=== PATIENT | female | born 1935 ===

== ENCOUNTER 2018-09-16 11:09 | Observation (INO) | payer MEDICARE ==
[2018-09-16 12:01] LABS: BASO # 0.01 K/mm3 (0.0-2.0); BASO % 0.2 % (0.0-3.0); EOS % 0.6 % (1.5-5.0); GRAN # 3.71 (1.4-6.5); GRAN % 75.6 % (50.0-68.0); HEMOGLOBIN 11.5 g/dL (12.0-16.0); LYMPH # 0.9 (1.2-3.4); LYMPH % 18.5 % (22.0-35.0); MEAN CELL VOLUME 93.4 fl (80.0-105.0); MEAN CORPUSCULAR HEMOGLOBIN 33.1 pg (25.0-35.0); MEAN CORPUSCULAR HGB CONC 35.5 g/dl (31.0-37.0); MEAN PLATELET VOLUME 9.1 fl (7.0-11.0); MONO # 0.3 (0.1-0.6); MONO % 5.1 % (1.0-6.0); RBC 3.47 10^6/uL (3.5-6.1); RED CELL DISTRIBUTION WIDTH 15.9 % (11.5-14.5); WHITE BLOOD COUNT 4.9 10^3/uL (4.5-11.0)
[2018-09-16 12:12] LABS: INR 1.06; PARTIAL THROMBOPLASTIN TIME 23.6 Seconds (25.1-36.5); PROTHROMBIN TIME 12.2 SECONDS (9.4-12.5)
[2018-09-16 12:15] LABS: ALB/GLOB RATIO 1.5 (1.1-1.8); ALBUMIN 4.2 g/dL (3.0-4.8); CALCIUM 9.1 mg/dL (8.4-10.5)
[2018-09-16] MEDS ORDERED: Sodium Chloride 0.9% 1,000 ML IV STA (12:20)
[2018-09-16 12:25] LABS: TROPONIN I 0.02 ng/mL
--- NOTE | 2018-09-16 12:31 | ED PDOC ---
Arrival/HPI - General Chief Complaint: Dizziness/Lightheaded Time Seen by Provider: 09/16/18 11:15 Historian: Patient - History of Present Illness Narrative History of Present Illness (Text): 09/16/18 12:22 82yo female with pmhx of hypertension, Diabetes, hyperlipdemia, AMY s/p 7stents who present with complaint of dizziness and nausea. the granddaughter by the bedside states patient suddenly became dizzy, nauseous and diaphoretic while sitting and visiting her daughter who is admitted in ICU. Patient states she became worried and anxious when she saw her daughter intubated. She reports chest pain, but both her and the grand daughter states she have chest pain everyday secondary to her history of Angina. States she sees a [employer] Production [employer] at [facility]. She denies fever,chills, vomiting, headache, focal weakness, ripping/tearing upper back pain, slurred speech, any other complaint. Past Medical History - Provider Review Nursing Documentation Reviewed: Yes - Cardiac Hx Hypertension: Yes - Endocrine/Metabolic Hx Diabetes Mellitus Type 2: Yes - Psychiatric Hx Substance Use: No Family/Social History - Physician Review Nursing Documentation Reviewed: Yes Family/Social History: Unknown Family HX Smoking Status: Former Smoker Hx Alcohol Use: No Hx Substance Use: No Allergies/Home Meds Allergies/Adverse Reactions: Allergies No Known Allergies Allergy (Verified 09/16/18 14:34) Review of Systems - Physician Review All systems were reviewed & negative as marked: Yes - Review of Systems Constitutional: Normal Eyes: Normal ENT: Normal Respiratory: Normal Cardiovascular: Chest Pain Gastrointestinal: Nausea. absent: Abdominal Pain, Constipation, Diarrhea Genitourinary Female: Normal Musculoskeletal: Normal Skin: Normal Neurological: Dizziness. absent: Focal Weakness, Gait Changes, Speech Changes Endocrine: Normal Hemo/Lymphatic: Normal Psychiatric: Normal Physical Exam Vital Signs Reviewed: Yes Vital Signs Temp Pulse Resp BP Pulse Ox 09/16/18 11:18 97.4 F L 46 L 16 86/43 L 97 Temperature: Afebrile Blood Pressure: Hypotensive Pulse: Regular Respiratory Rate: Normal Appearance: Positive for: Well-Appearing, Non-Toxic, Comfortable Pain Distress: None Mental Status: Positive for: Alert and Oriented X 3 - Systems Exam Head: Present: Atraumatic, Normocephalic Pupils: Present: PERRL Extroacular Muscles: Present: EOMI Conjunctiva: Present: Normal Mouth: Present: Moist Mucous Membranes Neck: Present: Normal Range of Motion Respiratory/Chest: Present: Clear to Auscultation, Good Air Exchange. No: Respiratory Distress, Accessory Muscle Use Cardiovascular: Present: Regular Rate and Rhythm, Normal S1, S2. No: Murmurs Abdomen: No: Tenderness, Distention, Peritoneal Signs Back: Present: Normal Inspection Upper Extremity: Present: Normal Inspection. No: Cyanosis, Edema Lower Extremity: Present: Normal Inspection. No: Edema Neurological: Present: GCS=15, CN II-XII Intact, Speech Normal, Motor Func Grossly Intact, Normal Sensory Function, Normal Cerebellar Funct, Other (No gross focal neurological deficit) Skin: Present: Warm, Dry, Normal Color. No: Rashes Psychiatric: Present: Alert, Oriented x 3, Normal Insight, Normal Concentration Medical Decision Making ED Course and Treatment: 09/16/18 17:11 82yo female in ED for dizziness and nausea minutes ENROLLMENT CONSULTANT. Labs EKG Chest xray 1L NS Labs was reviewed and all wnl EKG sinus iam with short NY @ 45bpm. N-stemi. No old EKG available for comparison. PT have UTI and started on Rocephin chest xray IMPRESSION: No active disease. Pt was admitted to r/o cardiac or Neuro cause of her dizziness. Case was DW Dr. Joseph and he accepted pt for admission. - Lab Interpretations Lab Results: 09/16/18 11:45 09/16/18 11:45 Lab Results 09/16/18 11:45: Sodium 137, Potassium 4.9, Chloride 103, Carbon Dioxide 26, Anion Gap 14, BUN 25 H, Creatinine 1.1, Est GFR ( Amer) 58, Est GFR (Non- Af Amer) 48, Random Glucose 256 H, Calcium 9.1, Magnesium 2.0, Total Bilirubin 1.9 H, AST 29, ALT 31, Alkaline Phosphatase 78, Lactate Dehydrogenase 655, Total Creatine Kinase 47, Troponin I Pending, NT-Pro-B Natriuret Pep Pending, Total Protein 6.9, Albumin 4.2, Globulin 2.7, Albumin/Globulin Ratio 1.5 09/16/18 11:45: PT 12.2, INR 1.06, APTT 23.6 L 09/16/18 11:45: WBC 4.9, RBC 3.47 L, Hgb 11.5 L, Hct 32.4 L, MCV 93.4, MCH 33.1, MCHC 35.5, RDW 15.9 H, Plt Count 150, MPV 9.1, Gran % 75.6 H, Lymph % (Auto) 18.5 L, Bartholomew % (Auto) 5.1, Eos % (Auto) 0.6 L, Baso % (Auto) 0.2, Gran # 3.71, Lymph # (Auto) 0.9 L, Bartholomew # (Auto) 0.3, Eos # (Auto) 0.0, Baso # (Auto) 0.01 09/16/18 11:26: POC Glucose (mg/dL) 262 H - RAD Interpretation Radiology Orders: 09/16/18 11:26 CHEST PORTABLE [RAD] Stat - Medication Orders Current Medication Orders: Sodium Chloride (Sodium Chloride 0.9%) 1,000 mls @ 100 mls/hr IV .Q10H STA Stop: 09/16/18 22:19 Disposition/Present on Arrival - Present on Arrival Any Indicators Present on Arrival: No History of DVT/PE: No History of Uncontrolled Diabetes: No Urinary Catheter: No History of Decub. Ulcer: No History Surgical Site Infection Following: None - Disposition Have Diagnosis and Disposition been Completed?: Yes Diagnosis: UTI (urinary tract infection), Near syncope, Chest pain Disposition: HOSPITALIZED Disposition Time: 13:00 Patient Plan: Admission Patient Problems: Current Active Problems Problem Status Onset Near syncope Acute UTI (urinary tract infection) Acute Condition: FAIR
--- NOTE | 2018-09-16 12:43 | RAD ---
Date of service: 09/16/2018 HISTORY: admission COMPARISON: No prior. FINDINGS: LUNGS: No active pulmonary disease. PLEURA: No significant pleural effusion identified, no pneumothorax apparent. CARDIOVASCULAR: Aortic calcification Normal cardiac size. No pulmonary vascular congestion. OSSEOUS STRUCTURES: No significant abnormalities. VISUALIZED UPPER ABDOMEN: Normal. OTHER FINDINGS: None. IMPRESSION: No active disease.
[2018-09-16 13:54] LABS: URINE BILIRUBIN SMALL (NEGATIVE); URINE BLOOD TRACE-INTACT (NEGATIVE); URINE GLUCOSE (UA) NEGATIVE (NEGATIVE); URINE LEUKOCYTE ESTERASE SMALL Leu/uL (NEGATIVE); URINE PROTEIN TRACE mg/dL (<30 mg/dL)
[2018-09-16 13:57] LABS: URINE APPEARANCE TURBID (CLEAR); URINE COLOR YELLOW (YELLOW)
[2018-09-16 14:05] LABS: URINE BACTERIA MANY /hpf; URINE RBC NEGATIVE /hpf (0-2)
[2018-09-16] MEDS ORDERED: cefTRIAXone 1 gm 1 GM/100 ML BAG IVPB STA (14:08)
--- NOTE | 2018-09-16 15:09 | CARD ---
APPROVED REPORT Date of service: 09/16/2018 EKG Measurement Heart [id number] <Conclusion> Marked sinus bradycardia with short NV Minimal voltage criteria for LVH, may be normal variant ST-T wave abnormality, consider lateral ischemia
[2018-09-16 16:55] VITALS: BMI 23.8
[2018-09-16] MEDS ORDERED: Influenza Vaccine 60 mcg/0.5 mL SYR (4YR UP) IM ONE (16:55)
[2018-09-16] MEDS ORDERED: Pneumococcal 23-Valent Vaccine IM ONE (16:55)
[2018-09-16] MEDS ORDERED: Sodium Chloride 0.45% 1,000 ML IV SCH (17:00)
--- NOTE | 2018-09-16 22:25 | HP ---
DATE OF EXAM: 09/16/2018 HISTORY OF PRESENT ILLNESS: She was called to the emergency room to see this young lady who is known for years. She is an 82-year-old female who presents with dizziness and nauseousness. Her granddaughter is at bedside. States she somewhat became dizzy and nauseous, diaphoretic, visiting her daughter who is admitted to the intensive care unit who is not doing well. She is very anxious and worried about her and she is intubated. PAST MEDICAL HISTORY: Diabetes, hypertension, high cholesterol, coronary artery disease with 7 stents. She has hypertension. She has diabetes, coronary artery disease. She was dizzy. FAMILY HISTORY: Unknown family history. SOCIAL HISTORY: Former smoker. No alcohol. No drugs. ALLERGIES: NO KNOWN DRUG ALLERGIES. REVIEW OF SYSTEMS: No headache. No vision changes. No hearing changes. No sore throat. No shortness of breath or cough. There is a little chest pain. There is nauseousness, but no abdominal pain. There is dizziness. No back pain. Skin, she notices is intact. No anxiety, depressed and anxious over daughter who was in the intensive care unit. PHYSICAL EXAMINATION GENERAL: She is well appearing, nontoxic, comfortable, in mild distress, alert and oriented x3. VITAL SIGNS: Temperature 97.4, pulse 46, respiratory rate 16, blood pressures , she is on IV fluids, 97% O2 sat. HEENT: Head is atraumatic, normocephalic. Pupils are reactive to light. Extraocular muscles are intact. Throat is moist. NECK: Supple. CARDIOPULMONARY: Regular rate. Normal S1, S2. LUNGS: Decreased breath sounds clear to auscultation. ABDOMEN: Soft, nontender. Positive bowel sounds. EXTREMITIES: No edema. She move all four extremities well. NEUROLOGICAL: GCS is 15. Cranial nerves II-XII. Tongue is midline. No gross neurological deficits. Alert, oriented x3. SKIN: Warm and dry. No apparent ulcers. LYMPHS: Thyroid midline. No palpable appreciable lymphadenopathy. LABORATORY DATA: She has a chest x-ray that shows no active disease. She had an EKG that shows marked sinus iam with short MI interval, voltage criteria for LVH, ST-T wave changes, consider lateral ischemia. The urine was positive for nitrites, small leukocytes, many bacteria. Sodium 137, potassium 4.9, BUN 25, creatinine 1.1, GFR is 48. Last blood sugar is 185. Calcium is 9.1, magnesium 2, total bili is 1.9, AST is 29, ALT 31, alk phos 78. Lactate dehydrogenase is 655, total creatine kinase 47. Troponin I is 0.02. BNP 432, total protein 6.9, albumin is 4.2, globulin is 2.7. INR is 1.06. White count 4.9, hemoglobin 11.5, hematocrit 32.4, platelets of 150. IMPRESSION: She is going to have a consult with Neurology, Infectious Disease and Cardiology. She will be on IV fluids, back on her medications and Rocephin. Check her troponins, oxygen and also some Zofran. She is here for dizziness, nauseousness, urinary tract infection, diabetes, hypertension. Adrian Joseph DO MTDD
[2018-09-16] MEDS: Insulin Lispro (humaLOG) MEDIUM Coverage SC SCH (22:37)
[2018-09-17 05:45] VITALS: O2SAT 99
[2018-09-17] MEDS: Insulin Lispro (humaLOG) MEDIUM Coverage SC SCH ×2 (08:40→12:24)
[2018-09-17 09:05] LABS: MEAN CELL VOLUME 93.9 fl (80.0-105.0); MEAN CORPUSCULAR HEMOGLOBIN 33.3 pg (25.0-35.0); MEAN CORPUSCULAR HGB CONC 35.5 g/dl (31.0-37.0); MEAN PLATELET VOLUME 9.7 fl (7.0-11.0); RBC 3.6 10^6/uL (3.5-6.1); RED CELL DISTRIBUTION WIDTH 15.9 % (11.5-14.5); WHITE BLOOD COUNT 3.9 10^3/uL (4.5-11.0)
[2018-09-17 09:14] LABS: ALB/GLOB RATIO 1.4 (1.1-1.8); ALBUMIN 4.1 g/dL (3.0-4.8); ALT/SGPT 28 U/L (7-56); AST/SGOT 26 U/L (14-36); BLOOD UREA NITROGEN 21 mg/dL (7-21); CALCIUM 9.2 mg/dL (8.4-10.5); GFR NON-AFRICAN AMERICAN 53
[2018-09-17 09:16] LABS: TROPONIN I < 0.01 ng/mL
[2018-09-17] MEDS ORDERED: Metoprolol Succinate 50 mg XL Tab PO SCH ×2 (10:00→10:30)
[2018-09-17] MEDS ORDERED: DICLOFENAC EPOLAMINE TD SCH ×2 (10:00→18:00)
[2018-09-17] MEDS ORDERED: Non Formulary Medication (Ranolazine [Ranexa] 500 MG) PO SCH (10:00)
[2018-09-17] MEDS ORDERED: cefTRIAXone 1 gm 1 GM/100 ML BAG IVPB SCH (10:00)
[2018-09-17 11:25] VITALS: BP 157/79
[2018-09-17 12:09] VITALS: PULSE 57; RESP 20; TEMP 97.8
--- NOTE | 2018-09-17 13:11 | DS ---
HISTORY OF PRESENT ILLNESS: She came in yesterday. She was very weak. She saw her daughter that was in the intensive care unit and I think it really affected her. She also has UTI. She is little bit renal insufficiency. We gave her IV fluids and she did well. She is feeling well. She is out of bed to chair. She is walking while she is in good spirits. She wants to go home. She will go home on a regular medication that she came in with Amaryl, diclofenac, Ecotrin, Imdur, Lipitor, Lyrica, Plavix, Ranexa, she will be on metoprolol. She will call me for a house call. She did well. PHYSICAL EXAMINATION: VITAL SIGNS: Her vital signs are 97.6 temperature, 87 pulse, 154/70 blood pressure as before the blood pressure pills, 18 respiratory rate, and 99% O2 saturation on room air. HEENT: Head is atraumatic and normocephalic. HEART: Regular rate. Heart rate now is 100. She is on metoprolol. LUNGS: Decreased breath sounds. ABDOMEN: Soft, nontender, positive bowel sounds. EXTREMITIES: No edema. LABORATORY DATA: She has a 3.9 white count, 12 hemoglobin, 33.8 hematocrit with 128 platelets. She has a 138 sodium, potassium 4.3, BUN 21, creatinine 1 better, GFR is 53 better. Blood sugar is 225, calcium is 9.2, total bilirubin is 1.3, AST is 26, ALT is 20, alk phos 82, troponin I is less than 0.01. Total protein is 7.1. Urine with many bacteria, should be on Cipro 500 mg twice a day. PLAN: Put her on regular medications and she will call me for house call. She is now on observation. Guillermo Joseph DO
--- NOTE | 2018-09-17 15:22 | CON ---
DATE: 09/17/2018 LOCATION: The patient is in room 277, bed 1. CHIEF COMPLAINT: Weakness. The patient of Dr. Adrian Joseph. The patient is seen in the emergency room yesterday by and had dizziness and lightheadedness in the emergency room, that was her chief complaint. HISTORY OF PRESENT ILLNESS: This is an 82-year-old female with hypertension, diabetes, hyperlipidemia, coronary artery disease with stents, her main disease associated with nausea where the patient's daughter had and the patient was admitted to the ICU. The patient denies any chest pain this morning. She states she feels fine. She denies any dysuria, frequency. No abdominal pain. No fevers, no chills. She denies any headaches. REVIEW OF SYSTEMS: A 14-point review of system is performed. PAST MEDICAL HISTORY: Significant for hypertension, diabetes, hyperlipidemia, coronary artery disease, cataracts, and gastric cancer. PAST SURGICAL HISTORY: Significant for cardiac catheterization with stent placement, partial gastrectomy. The patient also stated that she had a urinary bladder left with a mesh, left eye cataract surgery. ALLERGIES: THE PATIENT HAS NO KNOWN ALLERGIES TO THE ANTIBIOTICS. MEDICATIONS AT HOME: Include ranolazine, pregabalin, metoprolol, isosorbide, glimepiride, Flector, Plavix, atorvastatin, aspirin. PHYSICAL EXAMINATION GENERAL: She is sitting this morning, answered questions appropriately. Nontoxic. Awake, alert, and oriented x3. VITAL SIGNS: Temperature of 98; heart rate was 69, it was as high as 94 this morning, as low as 46 earlier in the admission yesterday; with a blood pressure of 150/70, it was as low as 86 systolic yesterday over 43; with a respiratory rate of 18 this morning, was as high as 20. The patient's saturation is at 98% saturation with a BMI of 23.8. HEENT: Unremarkable. Pupils were equal and reactive in the combination. Extraocular muscles were intact. Conjunctivae are pale. NECK: Supple. LUNGS: Decreased breath sounds. HEART: Normal S1, S2. ABDOMEN: Soft, nontender. No rebound, no guarding. LABORATORY DATA: Reveals her white count of 4.9 yesterday, it is down to 3.9 today; with a hemoglobin of 11; and platelets of 150 with 75% differential, neutrophil's. Coagulation is reviewed, the INR of 1.06, PTT of 23, with a PT of 12. Chemistry reveals that the patient does have an elevated glucose of 185, BUN and creatinine within normal range. LFTs are within normal range. Troponins are negative. The patient had a BNP which was 432. Urinalysis reveals 10 to 15 rbc's with many bacteria with positive nitrates and small leukocyte esterase. Microbiology is pending. IMAGING: Revealed the patient's chest x-ray read by Dr. Zackary Aguayo to be no active disease. An EKG reveals QTC of 413. has marked sinus bradycardia with a short MT interval, minimum voltage criteria for a left ventricular hypertrophy, may be normal variant, ST-T wave abnormalities dealt. It was read by Dr. Ozzy Maldonado. Dr. Adrian Joseph's history and physical examination is reviewed. ASSESSMENT AND PLAN: This is an 82-year-old female with diabetes, hypertension, hyperlipidemia, gastric cancer, coronary artery disease, who is admitted with nausea, vomiting, and dizziness, found to have heart rate of 91, white count of 3.9. Positive urinalysis with 10-15 wbc's, sepsis with urine as a source, hope she has no urinary symptoms. We will check on the blood cultures, urine cultures, currently on ceftriaxone. Completely benign abdominal exam. Currently, after , we will start the patient on ceftriaxone. We will check on the blood cultures and urine cultures. We will follow closely with you. Piyush Hook MD
--- NOTE | 2018-09-17 17:38 | CON ---
DATE: 09/17/2018 CARDIOLOGY CONSULTATION REASON FOR CONSULTATION: Dizziness. HISTORY OF PRESENT ILLNESS: The patient is an 82 years old female, who has a history of hypertension, diabetes mellitus, hyperlipidemia, history of coronary artery stenting, status post multiple coronary artery stents in the past. The patient presented because of sudden onset of dizziness and diaphoresis while sitting and visiting her daughter, who was admitted to ICU. The patient is constantly reporting chest pain, and she is followed by a development director in [place]. There is no reported ventricular tachycardia or severe sinus bradycardia on the monitor. The patient has no prior admissions to [facility]. SOCIAL HISTORY: Nonsmoker, nondrinker. MEDICATIONS: Amaryl 4 mg once a day, aspirin 81 mg once a day, Imdur 60 mg once a day, Lipitor 40 mg once a day, Plavix 75 mg once a day, Toprol XL 50 mg once a day. REVIEW OF SYSTEMS: No nausea or vomiting. No fever or chills. No productive cough. PHYSICAL EXAMINATION: GENERAL: The patient is an elderly female, who does not appear to be in acute distress. VITAL SIGNS: Blood pressure 157/79, heart rate 57, temperature 97.8, respirations 20. HEENT: Normocephalic. CHEST: Clear. HEART: S1 and S2 are regular. ABDOMEN: Soft. EXTREMITIES: No edema. LABORATORY DATA: Show a hemoglobin and hematocrit of 12 and 33.8, white count of 3.9, platelet count 128,000. SMA-7, sodium 138, potassium 4.3, chloride 103, CO2 of 26, glucose 133, BUN 21, creatinine 1.0. Three sets of troponin are not in the elevated range. PT 12.2. INR is 1.06. PTT 23.8. EKG revealed sinus bradycardia at a rate of 45, consider lateral ischemic T-wave changes. Junctional escape rhythm is also noted. Chest x-ray was unremarkable except for aortic and coronary calcification. ASSESSMENT: 1. Coronary artery disease with history of multiple coronary artery stenting in the past. 2. Sinus bradycardia, unlikely the reason for the patient's dizziness as there are no documented reports of bradycardia below 35 beats per minute. The slowest heart rate documented on the admitting EKG was 45 beats per minute. 3. Current anxiety. RECOMMENDATIONS: Continue aspirin 81 mg once a day, Lipitor 40 mg once a day, Imdur 60 mg once a day, Plavix 75 mg once a day. Discontinue Toprol XL. Obtain neurology evaluation. Consider a head CT scan without contrast, carotid Doppler. Obtain an echocardiogram as well as serum D-dimer. Jose L Eckert MD
== END 2018-09-17 16:45 | disposition home or self-care (01) ==
LOC: ED 11:09 → INTOOBSV 13:16 → ERH 13:16 → 2RSO 16:15
PROVIDERS: ADMIT Family Medicine; ATTEND Family Medicine
DX: N39.0 Urinary tract infection, site not specified (principal); R55 Syncope and collapse; I10 Essential (primary) hypertension; E11.9 Type 2 diabetes mellitus without complications; I25.10 Atherosclerotic heart disease of native coronary artery without angina pectoris; E78.00 Pure hypercholesterolemia, unspecified; F41.9 Anxiety disorder, unspecified; Z85.028 Personal history of other malignant neoplasm of stomach; Z95.5 Presence of coronary angioplasty implant and graft; Z87.891 Personal history of nicotine dependence; Z90.3 Acquired absence of stomach [part of]
CPT/HCPCS: 36415; 71045; 80053; 81001; 82550; 82948; 83615; 83735; 83880; 84484; 85025; 85027; 85610; 85730; 87086; 87181; 93005; 99285; G0378; J0696; J7030